=== PATIENT | male | born 1940 | race Caucasian/White ===

== ENCOUNTER → 2017-10-28 16:40 | Outpatient (CLI) | payer MEDICARE, SELFPAY ==
[2017-10-28 18:09] LABS: Anion Gap 7 (5-15); BUN 34 mg/dL (7-18); BUN/Creat Ratio 22.2 RATIO (10-20); Calcium,Total 8.2 mg/dL (8.5-10.1); Chloride 105 mmol/L (98-107); Creatinine, Serum 1.53 mg/dL (0.70-1.30); EST Glomerular Filtration Rate 47 mL/min (>60); Est Glom Filt Rate - Afr Amer 57 mL/min (>60); Glucose 150 mg/dL (70-110); Potassium 4.3 mmol/L (3.5-5.1); Sodium Level 139 mmol/L (136-145)
== END ==
PROVIDERS: Family Provider Family Medicine; PCP Family Medicine; Visit Provider Internal Medicine Gastroenterology
DX: K74.60 Unspecified cirrhosis of liver (principal); R19.7 Diarrhea, unspecified
CPT/HCPCS: 36415; 80048

== ENCOUNTER → 2017-11-04 10:35 | Outpatient (CLI) | payer MEDICARE, SELFPAY ==
--- NOTE | 2017-11-04 10:39 | US_ITS ---
PROCEDURE: Ultrasound guided paracentesis. DATE OF EXAMINATION: November 04, 2017.. INDICATION: Male, 76 years old. Ascites. PHYSICIAN: Shane Medrano M.D. TECHNIQUE: The risks, benefits, and alternatives to the procedure were explained to the patient. The specific risks of bleeding, infection, and damage to bowel were detailed and accepted. Witnessed informed consent was obtained. The abdomen was ultrasonographically surveyed. An appropriate pocket of fluid was identified at the right lower quadrant. The skin were cleaned and prepped in the usual sterile fashion. Using ultrasound guidance, the peritoneal cavity was accessed with a 5-[place] paracentesis needle/catheter system. The trocar was removed. A total of 8600 ml of meghann-colored fluid were removed from the peritoneal cavity. The catheter was removed and a sterile dressing was applied. The procedure was well tolerated. US/Paracentesis with US IMPRESSION: Ultrasound guided paracentesis. Electronically Signed: Shane Medrano MD at 12:31 EST Tel [phone], Service support ,
== END ==
PROVIDERS: Family Provider Family Medicine; PCP Family Medicine; Visit Provider Internal Medicine Gastroenterology
DX: R18.8 Other ascites (principal); K74.69 Other cirrhosis of liver
CPT/HCPCS: 49083

== ENCOUNTER → 2018-09-11 12:54 | Outpatient (CLI) | payer MEDICARE, SELFPAY ==
[2018-09-04 14:13] VITALS: BMI 28.8
--- NOTE | 2018-09-11 12:57 | STE_ITS ---
Reason For Study: CAD/ASHD Stress Results Protocol: Stress Echocardiogram Maximum Predicted HR: 143 bpm Target HR: 122 bpm % Maximum Predicted HR: 89 % DurationHeart Rate Stage (mm:ss) (bpm) BP Dose Comment BASELINE 81 178/90 NTG 0.4 MG SL GIVEN X 1 @ 1341, BP CAME DOWN TO 118/61 DSE- 10 MCG 3:12 88 142/6810.00 DSE- 20 MCG 3:06 116 131/5320.00 DSE- 30 MCG 2:48 127 127/4930.00DENIED COMPLAINT RECOVERY 93 154/79 Stress Duration: 9:06 mm:ss Maximum Stress HR: 127 bpm Baseline Echocardiogram Findings The estimated ejection fraction is 65 %. Stress Echo Wall motion Data Resting WM Intermediate WM Stress WM Wall Motion Stress No regional wall motion abnormalities noted. EKG Data Normal intervals are noted. The patient was titrated from 10 mcg to a maximun of 30 mcg of dobutamine during the stress. The maximum heart rate attained was 127 beats per minute. This was 88% of maximum predicted heart rate. During dobutamine infusion, there were no ST or T wave changes noted to suggest ischemia. No clinical angina was noted. Interpretation Summary The study was technically difficult. The estimated ejection fraction is 65 %. Normal, adequate, dobutamine echocardiogram. Negative for ischemia by EKG and echocardiographic criteria. No anginal symptoms noted. Rare PVC noted. Appropriate blood pressure response to dobutamine. Final LVEF is 75%. Decreased sensitivity due to poor echo windows. Test terminated due to attainment of target heart rate. No complications. Ordering Physician: Christopher Jay Referring Physician: Khalif Gilliland M.D. Performed By: Erica Medina, ALEXY, RVT
--- OUTSIDE RECORDS SUMMARY | 2018-10-28 08:29 | XMS RPT_ITS ---
:1940 Author Organization OHIP Care Team Providers Name Role Phone LIO GILLILAND Referring Unavailable BLAIRE ZUNIGA DO Admitting Unavailable BLAIRE ZUNIGA DO Attending Unavailable BLAIRE ZUNIGA DO Primary Care Unavailable LIO GILLILAND Consulting Unavailable PROVIDER, UNKNOWN Consulting Unavailable PROVIDER, UNKNOWN Consulting Unavailable PROVIDER, UNKNOWN Consulting Unavailable CHRISTOPHER RAMIREZ MD Admitting Unavailable CHRISTOPHER RAMIREZ MD Attending Unavailable CHRISTOPHER RAMIREZ MD Primary Care Unavailable LIO GILLILAND Consulting Unavailable PROVIDER, UNKNOWN Consulting Unavailable PROVIDER, UNKNOWN Consulting Unavailable PROVIDER, UNKNOWN Consulting Unavailable Christopher Ramirez Attending Unavailable RamirezChristopher Referring Unavailable Brown, Lio Primary Care Unavailable Christopher Ramirez Consulting Unavailable Jabour, Maryanaent Attending Unavailable Jabour, Vincent Referring Unavailable [facility], Lio Primary Care Unavailable Jabour, Vincent Attending Unavailable Jabour, Vincent Referring Unavailable Brown, Lio Primary Care Unavailable Jabour, Vincent Attending Unavailable Jabour, Vincent Referring Unavailable Brown, Lio Primary Care Unavailable Ramirez, Christopher Attending Unavailable Brown, Lio Referring Unavailable Brown, Lio Primary Care Unavailable Ramirez, Christopher Attending Unavailable Brown, Lio Referring Unavailable Ramirez, Christopher Attending Unavailable Ramirez, Christopher Referring Unavailable Brown, Lio Primary Care Unavailable PROBLEMS PROBLEMS DATE TYPE CONDITION / CODE ATTENDING STATUS SOURCE 09/11/2018 Unknown E78.5 - Christopher Ramirez Active [place] Hyperlipidemia, Community unspecified / Hospital E78.5(ICD-10) Repository 09/11/2018 Unknown I25.10 - Christopher Ramirez Active [place] Atherosclerotic Community heart disease of [facility] [place] coronary Repository artery without angina pectoris / I25.10(ICD-10) 09/11/2018 Unknown I25.5 - Ischemic Christopher Ramirez Active [place] cardiomyopathy / Community I25.5(ICD-10) Hospital Repository 09/11/2018 Unknown R55 - Syncope and Christopher Ramirez Active [place] collapse / Community R55(ICD-10) Hospital Repository 09/11/2018 Unknown Z95.1 - Presence of Christopher Ramirez Active [place] aortocoronary bypass Community graft / Hospital Z95.1(ICD-10) Repository 09/11/2018 Unknown Z95.5 - Presence of Christopher Ramirez Active [place] coronary angioplasty Community implant and graft / Hospital Z95.5(ICD-10) Repository 08/22/2018 Admitting Syncope and collapse BLAIRE ZUNIGA Active [facility]ome[facility] Diagnosis / R55(ICD-10) [facility] Repository 08/22/2018 Principle Syncope and collapse DIDEFRAIN, BLAIRE Active Reji [place] Diagnosis / R55(ICD-10) [facility] Repository 08/22/2018 Secondary Acute kidney DIDEFRAIN, BLAIRE Active Reji [place] Diagnosis failure, unspecified DO [facility] / N179(ICD-10) Hospital Repository 08/22/2018 Secondary Hyperkalemia / DIDBLAIRE ZUNIGA Active Reji [place] Diagnosis E875(ICD-10) [facility] Repository 08/22/2018 Secondary Abrasion of lower DIDUR, BLAIRE Active Reji [place] Diagnosis back and pelvis, [facility] initial encounter / Hospital E08905G(ICD-10) Repository 08/22/2018 Secondary Abrasion of left DIDUR, BLAIRE Active Reji [facility] Diagnosis upper arm, initial [facility] encounter / Hospital O00949M(ICD-10) Repository 08/22/2018 Secondary Other fall on same NADIABLAIRE Diagnosis level, initial [facility] encounter / Hospital L3555PJ(ICD-10) Repository 08/22/2018 Secondary Atherosclerotic DIDEFRAIN, BLAIRE Active Reji [place] Diagnosis heart disease of [facility] [place] coronary Hospital artery without Repository angina pectoris / I2510(ICD-10) 08/22/2018 Secondary Essential (primary) DIDBLAIRE ZUNIGA Diagnosis hypertension / [facility] I10(ICD-10) Hospital Repository 08/22/2018 Secondary Nicotine dependence, DIDBLAIRE ZUNIGA [place] Diagnosis cigarettes, [facility] uncomplicated / Hospital X54846(ICD-10) Repository 08/22/2018 Secondary Presence of KARISBLAIRE ZUNIGAne Diagnosis aortocoronary bypass [facility] graft / Z951(ICD-10) Hospital Repository 08/22/2018 Secondary Presence of coronary DIDBLAIRE ZUNIGA Diagnosis angioplasty implant DO [facility] and graft / Hospital Z955(ICD-10) Repository 08/22/2018 Secondary Type 2 diabetes DIDEFRAIN, BLAIRE [place] Diagnosis mellitus without [facility] complications / Hospital E119(ICD-10) Repository 08/22/2018 Secondary correction (current) DIDBLAIRE ZUNIGA Diagnosis use of insulin / [facility] Z794(ICD-10) Hospital Repository 08/22/2018 Secondary Old myocardial DIDEFRAIN, BLAIRE Ballne Diagnosis infarction / [facility] I252(ICD-10) Hospital Repository 08/22/2018 Secondary Personal history of BLAIRE ZUNIGAne Diagnosis other malignant [facility]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 / Hospital T82664(ICD-10) Repository PROCEDURES PROCEDURES No Procedure Records FoundRESULTS RESULTS STRESS TEST ECHO W/O Observed: 09/11/2018 Status: F Source: [place] CONTRAST 4:06 PM [facility] REPOSITORY [facility] Cardiovascular Services [address] [address] Stress Test Echo w/o Contrast MR#: [id number] Acct: [id number] Name: BENNY SUMNER Rep #: [id number] : 1940 77 From: Christopher Ramirez MD Primary Care: Lio Gilliland MD Status: REG CLI Ordering Dr: Christopher Ramirez MD Sex: M C Reason For Study: CAD/ASHD Stress Results Protocol: Stress Echocardiogram Maximum Predicted HR: 143 bpm Target HR: 122 bpm % Maximum Predicted HR: 89 % DurationHeart Rate Stage (mm:ss) (bpm) BP Dose Comment BASELINE 81 178/90 NTG 0.4 MG SL GIVEN X 1 @ 1341, BP CAME DOWN TO 118/61 DSE- 10 MCG 3:12 88 142/6810.00 DSE- 20 MCG 3:06 116 131/5320.00 DSE- 30 MCG 2:48 127 127/4930.00DENIED COMPLAINT RECOVERY 93 154/79 Stress Duration: 9:06 mm:ss Maximum Stress HR: 127 bpm Baseline Echocardiogram Findings The estimated ejection fraction is 65 %. Stress Echo Wall motion Data Resting WM Intermediate WM Stress WM Wall Motion Stress No regional wall motion abnormalities noted. EKG Data Normal intervals are noted. The patient was titrated from 10 mcg to a maximun of 30 mcg of dobutamine during the stress. The maximum heart rate attained was 127 beats per minute. This was 88% of maximum predicted heart rate. During dobutamine infusion, there were no ST or T wave changes noted to suggest ischemia. No clinical angina was noted. Interpretation Summary The study was technically difficult. The estimated ejection fraction is 65 %. Normal, adequate, dobutamine echocardiogram. Negative for ischemia by EKG and echocardiographic criteria. No anginal symptoms noted. Rare PVC noted. Appropriate blood pressure response to dobutamine. Final LVEF is 75%. Decreased sensitivity due to poor echo windows. Test terminated due to attainment of target heart rate. No complications. Ordering Physician: Christopher Ramirez Referring Physician: Khalif Gilliland M.D. Performed By: Erica Medina, ALEXY, RVT 09/11/18 1606 Date Christopher Ramirez MD CC: Christopher Ramirez MD; Lio Gilliland MD Date Dictated: 09/11/18 1340 Date Transcribed: 09/11/18 1606 [employer] Manager: Signed LIPID PROFILE Collected: 09/08/2018 Status: F Source: [facility]TIZ 10:22 [facility] REPOSITORY TYPE CODE TESTS RESULT OUT OF REFERENCE UNITS RANGE LAB LIPID PROFILE(LOIN C) LIPID PROFILE Result Comment: LIPID PROFILE LAB TRIGLYCERIDE(LOINC) 0 - 150 mg/dl TRIGLYCERIDE 67 LAB CHOLESTEROL(LOINC) 0 - 200 mg/dl CHOLESTEROL 88 LAB HDL(LOINC) 40 - 60 mg/dl HDL Low 38 LAB CHOL/HDL(LOINC) 0.0 - 5.0 CHOL/HDL 2.3 LAB LDL(LOINC) 0 - 129 mg/dl LDL 37 Performed By: #### [id number] #### [facility],[address] [place] [address] HEPATIC FUNCTION Collected: 09/08/2018 Status: F [facility] REPOSITORY TYPE CODE TESTS RESULT OUT OF REFERENCE UNITS RANGE LAB HEPATIC FUNCTION PANEL(LOINC) HEPATIC FUNCTION PANEL Result Comment: HEPATIC FUNCTION PROFILE LAB ALBUMIN(LOINC) 3.4 - 4.8 g/dL ALBUMIN 3.7 LAB ALK PHOS(LOINC) 38 - 126 U/L ALK PHOS 117 LAB AST/SGOT(LOINC) 13 - 39 U/L AST/SGOT 32 LAB ALT/SGPT(LOINC) 10 - 40 U/L ALT/SGPT 20 LAB TOTAL BILI(LOINC) 0.0 - 1.5 mg/dl TOTAL BILI 0.6 LAB DIRECT BILI(LOINC) 0.0 - 0.1 mg/dl High DIRECT BILI 0.2 LAB TOTAL PROTEIN(LOINC) 6.4 - 8.3 g/dl Low TOTAL PROTEIN 6.3 Performed By: #### [id number] #### Reji [facility],[address] [place] [address] CARDIOLOGY VISIT Observed: 09/04/2018 Status: F Source: [place] REPORT 2:32 PM [facility] REPOSITORY [facility] [address] [place] [id number] OFFICE VISIT Date of Service: 09/04/18 MR#: [id number] Acct: [id number] Name: BENNY SUMNER Rep #: [id number] : 1940 Provider: Christopher Ramirez MD Age/Sex: 77/M Location: [facility] [place] Status: Signed HPI HPI Chief Complaint: Routine f/u Details: Referring physician: Dr. Warren Gilliland/Dr Gonzalez It was a pleasure seeing your patient, Benny Sumner, today in our office. He is returning for followup of his coronary artery disease status post coronary artery bypass grafting and, more previously, angioplasty and stenting of the right coronary and circumflex coronaries in 2009 and 2011, respectively. As you know is a very pleasant 77-year-old gentleman with diabetes, hypertension, hypercholesterolemia, coronary artery disease status post bypass surgery on 01/20/98. At that time he received an JARQUIN to the LAD, and an SVG to the left circumflex. Mr. Sumner presented to [facility] in January of 2013 with chest discomfort concerning for recurrent angina with lateral ST changes suggestive of ischemia. An echocardiogram was performed which demonstrated mild left ventricular hypertrophy, inferior segmental dysfunction, ejection fraction 60%, mild left atrial enlargement, mild mitral annular calcification with mild mitral insufficiency, trivial tricuspid insufficiency, calcified aortic root with aortic sclerosis and trivial insufficiency, and the RV systolic pressure was 37. He was transferred to [facility] where he underwent cardiac catheterization and was found to have an ejection fraction of 65%. There was a patent left internal mammary to the left anterior descending. The right coronary stents were patent. The circumflex was found to have a patent saphenous graft to the posterior lateral, however, there was a second obtuse marginal with 70% stenosis and 70% circumflex stenosis beyond the graft both of which were stented with drug-eluting stents. Patient also has a history of drug- eluting stent to the ostium of the RCA in December 2009. Unfortunately the patient has continued to smoke but has reduced his cigarette use to around 5 cigarettes per day. On our last visit, the patient did complain of some chest pain, and underwent a noninvasive non-walking stress test in January 2015 which was negative for inducible ischemia. Since that time he has had no further anginal symptoms. he is taking and tolerating his medicines well. The patient then presented to [facility] on 03/08/16 with hypertensive urgency and chest pain. The patient developed flash pulmonary edema due to hypertension and was urgently transferred to [facility]. There he underwent urgent repeat catheterization which demonstrated a thrombus in the saphenous vein graft to the left circumflex which underwent urgent thrombectomy and drug-eluting stent receiving a 3.5X 18 xience stent, as well as balloon angioplasty only of the proximal mid and ostial RCA. The patient has a previous RCA stent which was described as suboptimally deployed. No additional stenting was done of the RCA. His JARQUIN to his LAD was found to be patent and his stents in the proximal left circumflex were found to have a 40% in-stent restenosis. The 1st OM had a mid 90% stenosis which was not addressed. At that time an echocardiogram was done which demonstrated an EF around 50% and mild to moderate mitral regurgitation with inferior and inferolateral dysfunction. His RVSP was estimated to be 37 mmHg. Patient apparently has developed ascites of unknown cause although he was a lifelong nondrinker, and had required several episodes of therapeutic paracenteses. He no longer has required any of those for some time. According to the daughter, the patient was diagnosed with cirrhosis of the liver. From a cardiac standpoint, he denies any exertional chest pain, angina, shortness of breath other than when he accumulates fluid. His most recent liver function labs were on 07/30/17 which showed an ALT of 29 and alk phos of 147 and AST of 37. Apparently his GI physician is Dr. Amaro. He continues to smoke about a half a pack of cigarettes per day. 08/22/18 he was admitted to [facility] with what appeared to be a syncopal event. He was found to be hyperkalemic with a potassium of 7.1 and his medications were adjusted. He continued spironolactone 50 mg twice daily and Lasix 40 mg a day. his potassium reduced down to 5.5 and he was subsequently discharged. It was felt the patient may be dehydrated, to explain his syncopal episode, was given IV fluids and discharge. Patient is also complained of dry hacking cough for some time. He is on low-dose lisinopril. His blood pressures today is 120/60, and pulse is 80 and regular. His physical exam is as below. EKG on his previous visit demonstrated normal sinus rhythm. Lipids as of 03/08/16 showed HDL of 28 and LDL of 34. Echo from 03/08/16 showed an EF of 40-50%, mild to moderate mitral regurgitation, and RVSP of 37 mmHg. Lipids as of 03/08/16 showing LDL of 34 and HDL 28. Lipids as of 03/19/17 show an LDL of 57 and HDL 32. His lipids as of 10/09/17 showed HDL 34 and LDL 25. 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: No Accompanied by: Daughter Is patient in pain?: No Allergies Sulfa (Sulfonamide Antibiotics) Adverse Reaction (Verified 09/02/18 17:34) Nausea Medications Allopurinol [Zyloprim] 300 mg PO DAILY 03/12/16 [History Confirmed 09/04/18] Aspirin [Aspirin, Baby] 81 mg PO DAILY@0800 03/12/16 [History Confirmed 09/04/18] Isosorbide Mononitrate [Imdur] 120 mg PO DAILY 03/12/16 [History Confirmed 09/04/18] Paroxetine HCl [Paxil] 20 mg PO DAILY 03/12/16 [History Confirmed 09/04/18] furosemide 40 mg tablet 40 mg PO QDAY 09/18/17 [History Confirmed 09/04/18] simvastatin 40 mg tablet 40 mg PO QPM 09/18/17 [History Confirmed 09/04/18] carvedilol 6.25 mg tablet 6.25 mg PO BID 04/17/18 [History Confirmed 09/04/18] insulin NPH isophane U-100 human 100 unit/mL (3 mL) subcutaneous pen 6 unit SC QHS ml 04/17/18 [History Confirmed 09/04/18] insulin human U-100 NPH-regulr 70-30 mix 100 unit/mL subcutaneous susp 22 unit SC DAILY ml 04/17/18 [History Confirmed 09/04/18] spironolactone 50 mg tablet 50 mg PO QDAY 04/17/18 [History Confirmed 09/04/18] [facility] Medical History Syncope (Acute 08/22/18) Ascites (Acute) Ischemic cardiomyopathy (Chronic) Atherosclerosis of coronary artery of [place] heart without angina pectoris (Chronic) Atherosclerosis of coronary artery bypass graft without angina pectoris (Chronic) CVA (cerebral vascular accident) (Chronic) Hypertension (Chronic) Hyperlipidemia (Chronic) Type 2 diabetes mellitus without complications (Chronic) Cirrhosis (Chronic) Old myocardial infarction (Chronic) Pancreatitis (Chronic) Surgical History History of coronary artery stent placement (Chronic 03/09/16) H/O coronary artery bypass surgery (Chronic 01/20/98) paracentesis (Chronic 07/2017) Social History Smoking Status: Current every day smoker ROS Const Const: Positive for other (08/22 passed out, went to [facility]. KCL high, dehydrated); negative for fatigue, weakness, body ache, fever(s), headache(s), chills, frequent falls, night sweats, daytime sleepiness, difficulty sleeping, excessive sweating, weight gain, weight loss, increased appetite, poor appetite or anorexia Eyes Eyes: Negative for blind spots, loss of peripheral vision, transient loss of vision, blurry vision, change in vision, double vision, floaters, tunnel vision or other ENT ENT: Negative for dizziness, hearing loss, tinnitus, Nosebleed/epistaxis, balance problems, post nasal drip, lip swelling, tongue swelling, bleeding gums, hoarseness, neck pain, dry mouth, other or headache(s) Cardio Chest Pain: No Palpitations: No Edema: None Muscle aches with walking: None Resp Respiratory: Negative for SOB with activity, SOB at rest, SOB orthopnea\SOB lying down, Cough, Coughing up blood/hemoptysis, chest congestion, pain on inspiration, snoring, stridor, wheezing, crackles, paroxysmal nocturnal dyspnea or other GI GI: Negative nausea, vomiting, heartburn, constipation, belching, bloating, cramping, vomiting blood/hematemesis, bright, red blood in stools, black,tarry stools, loose stools, Difficulty Swallowing or other : Negative for hematuria, frequent nighttime urination/ nocturia, erectile dysfunction or abnormal vaginal bleeding Musc Musc: Negative for balance problems, muscle aches/ myalgia, muscle weakness or joint pain Skin Skin: Negative redness, non-healing lesions, rash, unusual bruising, skin ulcer, wounds, jaundice or other Neuro Neuro: Negative for blurry vision, double vision, dizziness, lightheadedness, near syncope, syncope, orthostatic symptoms, confusion, memory loss, restless legs, vertigo, seizures, lack of coordination, other, weakness, headache(s) or frequent falls [place] Hematologic/Lymphatic: Negative for easy bleeding, easy bruising, enlarged lymph nodes or other Endo Endo: Negative for cold intolerance, heat intolerance, flushing, increased thirst/drinking, increased hunger, hair loss, hair growth, other, fatigue or excessive sweating Psych Psych: Negative for anxiety, depression, thoughts of harming anyone, thoughts of harming yourself, visual hallucinations, panic attacks or audible hallucinations Allergy Allergy/Immunology: Negative for lip swelling, Negative for tongue swelling, Negative for rash, Negative for throat swelling, Negative for hives Cardiology Exam Const Appearance: cooperative, healthy appearing and no acute distress Nutritional Appearance: well nourished Orientation: alert, oriented x3 and oriented to person Head Head: normal to inspection, atraumatic and normocephalic Nose: external nose normal Face and Sinus: face symmetric Mouth: oral mucosae normal Eyes General: appearance normal, both eyes and all related structures Eyelids: eyelids normal Conjunctivae: conjunctivae normal Pupils: PERRL and normal by confrontation EOM: EOM intact bilaterally Neck Neck: normal visual inspection and full ROM Carotids: normal carotid upstroke Chest Chest inspection: normal inspection of the chest Auscultation: Bilateral: Clear to Auscultation Cardio Palpation: normal PMI Rate: regular rate Rhythm: regular rhythm Heart sounds: S1 normal and S2 normal GI GI: normal to inspection, no hepatosplenomegaly and bowel sounds present Neuro General: alert, oriented x3, awake, CN's II-XI intact bilaterally and moves all extremities Skin Skin: no rashes or lesions noted Extremities Pulses: Normal: Right Femoral Pulse, Left Femoral Pulse, Right Dorsalis Pedis Pulse, Left Dorsalis Pedis Pulse, Right Posterior Tibial Pulse, Left Posterior Tibial Pulse, Right Radial Pulse, Left Radial Pulse Lower Extremity Edema: None: Bilateral Psych Psychological: normal affect Assessment AND Plan 1. Syncope R55 Had episode a year ago, did not go to ER. This time he did. Was hypotensive, K+ 7.1, BUN 64 and creat 2.9 (up from 29 and 1.5 previous year). Dehydration and acute renal injury. Trop neg. Recheck after IV fluids, K+ 5.8. Pt refused both transfer to AND tsfer to [place]. Plan 1. Syncope: The patient had a syncopal disorder while walking around a dark room after getting up from a nap in July 2018. The patient was also found to be hyperkalemic with a potassium of 7.1. In addition the patient complains of decreased energy, and shortness of breath. Unfortunately he continues to smoke. Given the patient's risk factors and extensive cardiac history I recommended that he undergo a dobutamine echocardiogram to evaluate for possible ischemia. If this is grossly abnormal for ischemia he may require a diagnostic coronary angiogram. In addition I recommend discontinuation of his lisinopril given his recent hyperkalemia as he is already on high-dose spironolactone which are most likely contributing to his hyperkalemia. He will continue his spironolactone and Lasix as well as his Coreg. In addition the patient is on Imdur 120 mg p.o. daily, but denies any presyncope or syncope during the day. Orders Orders: 2. HLD (hyperlipidemia) E78.5 Plan 2. Hyperlipidemia: Recommend repeating his lipid profile. His LDL should be less than 70. Continue Zocor. 3. Return office in 6 months. This note was generated using a voice recognition system and there may be incorrect words, spelling or punctuation that were not noted when reviewing the office note prior to saving. Orders Orders: Plan Detail Other Orders Orders: Follow Up +6M (Pierre) Coding Level of Care Code Off vis,est,level 3 Diagnoses Syncope R55 HLD (hyperlipidemia) E78.5 Coding Level of Care Code Off vis,est,level 3 Diagnoses Syncope R55 HLD (hyperlipidemia) E78.5 09/04/18 1432 <Electronically signed by Christopher Ramirez MD> Date Christopher Ramirez MD Cosigner Signature: Date (if applicable) CC: Lio Gilliland MD TROPONIN Collected: 08/22/2018 Status: F Source: [facility] 10:25 PM [facility] REPOSITORY TYPE CODE TESTS RESULT OUT OF REFERENCE UNITS RANGE LAB TROPONIN 0.00 - 0.05 ng/ml I(LOINC) TROPONIN I 0.01 Result Comment: Elevated troponin (above the 99th percentile) usually indicates myocardial ischemia. Results must be interpreted within the clinical setting. 1.Non-ischemic pathology can also cause elevated troponin levels (e.g., acute pulmonary embolism, myocarditis, pericarditis, heart failure, intracranial injury, rhabdomyolisis, sepsis, shock and renal insufficiency). 2.Approximately 1% of healthy adults have elevated troponin levels. 3.Analytical false positive results rarely occur(due to multiple interferences such as heterophile antibodies). Performed By: #### [id number] #### [facility],[address] [place] [address] BMP WITH EGFR Collected: 08/22/2018 Status: F Source: [facility] 10:25 PM [facility] REPOSITORY TYPE CODE TESTS RESULT OUT OF RANGE REFERENCE UNITS LAB BMP with eGFR(LOINC) BMP with eGFR Result Comment: BASIC METABOLIC PANEL LAB SODIUM(LOINC) 136 - 145 mmol/l SODIUM 137 LAB POTASSIUM(LOINC) 3.5 - 5.1 mmol/L High POTASSIUM 5.8 LAB CHLORIDE(LOINC) 98 - 107 mmol/L CHLORIDE High 111 LAB CO2(LOINC) 21.0 - mmol/L 31.0 CO2 Low 20.9 LAB GLUCOSE(LOINC) 74 - 106 mg/dl GLUCOSE High 162 LAB BUN(LOINC) 6 - 20 mg/dl BUN High 61 LAB CREATININE(LOINC) 0.7 - 1.3 mg/dl High CREATININE 2.6 LAB CALCIUM(LOINC) 8.6 - mg/dl 10.2 CALCIUM 9.0 LAB ANION GAP(LOINC) 10 - 20 mmol/L ANION GAP 11 LAB AGE(LOINC) years AGE 77 LAB eGFR(LOINC) 60 - 999 ML/MINUTE eGFR Low 24 LAB eGFR(AA)(LOINC) 60 - 999 ML/MINUTE eGFR(AA) Low 29 Result Comment: ACCORDING TO THE NATIONAL KIDNEY DISEASE EDUCATION PROGRAM(NKDE), A NORMAL eGFR IS A VALUE GREATER THAN OR EQUAL TO 60 ML/MIN/1.73 SQ METERS. CHRONIC KIDNEY DISEASE: <60mL/MIN/1.73 SQ METERS KIDNEY FAILURE: <15mL/MIN/1.73 SQ METERS THIS TEST SHOULD ONLY BE USED FOR PATIENTS 18 YEARS OF AGE AND OLDER. Performed By: #### [id number] #### [place] [address] CHEST 2 VIEWS Observed: 08/22/2018 Status: F Source: [facility] 8:34 PM [place] [address] Patient: BENNY SUMNER Phone#: : 1940 Age: 77 Gender: M Pt. Type: ER Account: [id number] Location: [facility] Ordering: BLAIRE ZUNIGA Exam Date: 08/22/2018/20:17 Family Phys: LIO GILLILAND Charge Code: [id number] Physician: [place] Order #: [id number] DLP Dose#: PROCEDURE: X-RAY CHEST 2 VIEWS COMPARISON: [facility], XR, CHEST PA/LAT, 07/17/2017, 14:22. INDICATIONS: Trauma FINDINGS: LUNGS: Normal. No significant pulmonary parenchymal abnormalities. VASCULATURE: Normal. Unremarkable pulmonary vasculature. CARDIAC: Normal. No cardiac silhouette abnormality or cardiomegaly. MEDIASTINUM: Normal. No visible mass or adenopathy. PLEURA: Normal. No effusion or pleural thickening. BONES: Normal. No fracture or visible bony lesion. OTHER: Sternotomy sutures are present. CONCLUSION: No acute disease. Dictated by: Lynn Jackson MD on 08/23/2018 at 10:24 Approved by: Lynn Jackson MD on 08/23/2018 at 10:24 HIP COMPLETE LT MIN 2 Observed: 08/22/2018 Status: F Source: [facility] VIEWS W/PELVIS 8:34 PM [place] [address] Patient: BENNY SUMNER Phone#: : 1940 Age: 77 Gender: M Pt. Type: ER Account: [id number] Location: 05 Ordering: BLAIRE ZUNIGA Exam Date: 08/22/2018/20:18 Family Phys: LIO GILLILAND Charge Code: [id number] Physician: [place] Order #: [id number] DLP Dose#: PROCEDURE: X-RAY HIP LT COMPLETE MIN 2 VIEWS W/PELVIS COMPARISON: None. INDICATIONS: Trauma FINDINGS: BONES: Normal. No significant arthropathy or acute abnormality. SOFT TISSUES: Vascular calcifications are present. Surgical clips are present in the soft tissues of the medial thigh. EFFUSION: None visible. OTHER: Negative. CONCLUSION: No acute disease. Dictated by: Lynn Jackson MD on 08/23/2018 at 10:24 Approved by: Lynn Jackson MD on 08/23/2018 at 10:24 LUMBO SACRAL AP LAT Observed: 08/22/2018 Status: F Source: [facility] 8:34 PM [place] [address] Patient: BENNY SUMNER Phone#: : 1940 Age: 77 Gender: M Pt. Type: ER Account: [id number] Location: 052 Ordering: BLAIRE ZUNIGA Exam Date: 08/22/2018/20:19 Family Phys: LIO BROWN Charge Code: [id number] Physician: [place] Order #: [id number] DLP Dose#: PROCEDURE: X-RAY LUMBAR SPINE AP/LAT 2 VIEWS COMPARISON: None. INDICATIONS: Trauma FINDINGS: BONES: Degenerative changes are present most marked at the L2-3 level. Minimal curvature of the spine to the left is present. Degenerative changes of the hips are present. DISC SPACES: Normal. No significant disc height narrowing, subluxation, or endplate abnormality. PARASPINOUS: Calcification of aorta is present without aneurysmal dilatation. OTHER: Negative. CONCLUSION: 1. There is no evidence of acute bone abnormality. Dictated by: Lynn Jackson MD on 08/23/2018 at 10:25 Approved by: Lynn Jackson MD on 08/23/2018 at 10:25 CT CERVICAL W/O Observed: 08/22/2018 Status: F Source: [facility] CONTRAST 8:33 PM [place] [address] Patient: BENNY SUMNER Phone#: : 1940 Age: 77 Gender: M Pt. Type: ER Account: [id number] Location: 052 Ordering: BLAIRE ZUNIGA Exam Date: 08/22/2018/20:16 Family Phys: LIO GILLILAND Charge Code: [id number] Physician: [place] Order #: [id number] DLP Dose#: PROCEDURE: CT CERVICAL WITHOUT CONTRAST COMPARISON: None. INDICATIONS: Trauma TECHNIQUE: Multi-planar CT images were created without intravenous contrast. All CT scans at this facility use dose modulation, iterative reconstruction, and/or weight based dosing when appropriate to reduce radiation dose to as low as reasonably achievable. IV CONTRAST: No IV contrast used,0ml TOTAL DOSE: 11.1 CTDIvol(mGy) FINDINGS: CRANIOCERVICAL AREA: Normal foramen magnum with no Chiari malformation. PARASPINAL AREA: Carotid artery calcification is present. BONES: There is straightening of the normal cervical lordosis. Degenerative change is present most marked at C5-6 and C6-7. CERVICAL DISC LEVELS: C2-C3: No significant disc/facet abnormality, spinal stenosis, or foraminal stenosis. C3-C4: Endplate hypertrophy is present with left foraminal impingement. C4-C5: No significant disc/facet abnormality, spinal stenosis, or foraminal stenosis. C5-C6: Narrowing is present. There are is endplate hypertrophy with bilateral foraminal impingement. C6-C7: Disc space narrowing is present. Bony hypertrophy at the endplates is present with bilateral foraminal impingement. C7-T1: No significant disc/facet abnormality, spinal stenosis, or foraminal stenosis. CONCLUSION: 1. There is no evidence of acute fracture or subluxation. Continued Report - Page 2 of 2 Patient: BENNY SUMNER Phone#: : 1940 Age: 77 Gender: M Pt. Type: ER Account: [id number] Location: 052 Ordering: BLAIRE ZUNIGA Exam Date: 08/22/2018/20:16 Family Phys: LIO GILLILAND Charge Code: [id number] Physician: [place] Order #: [id number] DLP Dose#: 2. Degenerative changes are present. Dictated by: Lynn Jackson MD on 08/23/2018 at 10:36 Approved by: Lynn Jackson MD on 08/23/2018 at 10:36 CT BRAIN W/O CONTRAST Observed: 08/22/2018 Status: F Source: [facility] 8:33 PM [place] [address] Patient: BENNY SUMNER Phone#: : 1940 Age: 77 Gender: M Pt. Type: ER Account: [id number] Location: 052 Ordering: BLAIRE ZUNIGA Exam Date: 08/22/2018/20:16 Family Phys: LIO GILLILAND Charge Code: [id number] Physician: [place] Order #: [id number] DLP Dose#: PROCEDURE: CT BRAIN WITHOUT CONTRAST COMPARISON: None. INDICATIONS: Trauma TECHNIQUE: CT images were obtained without contrast material. All CT scans at this facility use dose modulation, iterative reconstruction, and/or weight based dosing when appropriate to reduce radiation dose to as low as reasonably achievable. IV CONTRAST: No IV contrast used,0ml TOTAL DOSE: 52.3 CTDIvol(mGy) FINDINGS: CEREBRUM: Age-appropriate atrophy is present, without visible acute hemorrhage or lesion. Left basal ganglia calcifications are present. CEREBELLUM: No edema, hemorrhage, mass, acute infarction, or inappropriate atrophy. BRAINSTEM: No edema, hemorrhage, mass, acute infarction, or inappropriate atrophy. CSF SPACES: Ventricles, cisterns, and sulci are appropriate for age. No hydrocephalus, subarachnoid hemorrhage, or mass. SKULL: No mass or other significant visible lesion. SINUSES: Dose of thickening is present most marked at the ethmoid sinuses. There is also mucosal thickening in the sphenoid sinuses and mucocele in the left frontal sinus ORBITS: Limited views are unremarkable. OTHER: Negative. CONCLUSION: No acute disease. Dictated by: Lynn Jackson MD on 08/23/2018 at 10:38 Continued Report - Page 2 of 2 Patient: BENNY SUMNRE Phone#: : 1940 Age: 77 Gender: M Pt. Type: ER Account: [id number] Location: [facility] Ordering: BLAIRE ZUNIGA Exam Date: 08/22/2018/20:16 Family Phys: LIO GILLILAND Charge Code: [id number] Physician: [place] Order #: [id number] DLP Dose#: Approved by: Lynn Jackson MD on 08/23/2018 at 10:38 CBC Collected: 08/22/2018 Status: F Source: [facility] 8:05 PM [facility] REPOSITORY TYPE CODE TESTS RESULT OUT OF RANGE REFERENCE UNITS LAB CBC(LOINC) CBC Result Comment: CBC-COMPLETE BLOOD COUNT LAB WBC(LOINC) 4.5 - 10.8 x 10EE3/UL WBC High 11.6 LAB RBC(LOINC) 4.50 - x 10EE6/UL 6.00 RBC Low 3.62 LAB HEMOGLOBIN(LOINC 13.0 - g/dl ) 17.5 Low HEMOGLOBIN 11.4 LAB HEMATOCRIT(LOINC 40.0 - % ) 52.0 Low HEMATOCRIT 34.1 LAB MCV(LOINC) 81 - 98 fl MCV 94 LAB MCH(LOINC) 27 - 33 pg MCH 32 LAB MCHC(LOINC) 32 - 36 X10 3 MCHC 34 LAB RDW/CV(LOINC) 12.0 - % 15.6 RDW/CV High 16.6 LAB PLATELET(LOINC) 150 - 450 x10EE3/UL PLATELET Low 128 LAB MPV(LOINC) 6.4 - 10.5 fl MPV 8.6 Result Comment: AUTOMATED DIFFERENTIAL LAB NEUT %(LOINC) 46.0 - 76.0 % NEUT % 76.0 LAB LYMPH %(LOINC) 20.0 - 45.0 % Low LYMPH % 12.5 LAB MONOS %(LOINC) 0.0 - 10.0 % MONOS % 5.7 LAB EO %(LOINC) 0.0 - 7.0 % EO % 5.0 LAB BASO %(LOINC) 0.0 - 2.0 % BASO % 0.8 LAB Lymph #(LOINC) 0.80 - 2.80 x10EE3/U L Lymph # 1.40 LAB Neut #(LOINC) 1.50 - 7.10 x10EE3/U L Neut # High 8.80 LAB Louisa #(LOINC) 0.20 - 1.00 x10EE3/U L Louisa # 0.70 LAB EO #(LOINC) 0.00 - 0.50 x10EE3/U L EO # High 0.60 LAB Baso #(LOINC) 0.00 - 0.10 x10EE3/U L Baso # 0.10 LAB MANUAL DIFF(LOINC) MANUAL DIFF N/A LAB MORPHOLOGY(LOINC ) MORPHOLOGY N/A Result Comment: {CD] Performed By: #### [id number] #### [place] [id number] D-DIMER, QUANTITATIVE Collected: 08/22/2018 Status: F Source: [facility] 8:05 PM [facility] REPOSITORY TYPE CODE TESTS RESULT OUT OF REFERENCE UNITS RANGE LAB D-DIMER, QUANTITATI VE(LOINC) D-DIMER, QUANTITATIVE Result Comment: QUANT D-DIMER LAB D-DIMER 0 - 230 ng/ml QUANT(LOINC) High D-DIMER QUANT 372 Performed By: #### [id number] #### [place] [id number] Observed: 08/22/2018 Status: F Source: [facility] INFLUENZA VIRUS RAPID 8:05 PM [facility] A/B REPOSITORY INFLUENZA A NEGATIVE INFLUENZA B NEGATIVE INTERNAL NEG QC PASS INTERNAL POS QC PASS EXTERNAL QC DONE? YES A NEGATIVE TEST RESULT DOES NOT EXCLUDE INFECTION WITH INFLUENZA A OR B. THEREFORE, THE RESULTS OBTAINED FROM THIS FLU TEST SHOULD BE USED IN CONJUCTION WITH CLINICAL FINDINGS TO MAKE AN ACCURATE DIAGNOSIS. A POSITIVE RESULT DOES NOT RULE OUT CO-INFECTIONS WITH OTHER PATHOGENS OR IDENTIFY ANY SPECIFIC INFLUENZA A VIRUS SUBTYPE.CO-INFECTION WITH INFLUENZA A AND B IS RARE. IT IS RECOMMENDED THAT DUAL POSITIVE RESULTS BE CONFIRMED BY VIRAL CULTURE OR AN FDA-CLEARED INFLUENZA A AND B MOLECULAR ASSAY. INDIVIDUALS WHO HAVE RECEIVED NASALLY ADMINISTERED INFLUENZA A VACCINE MAY TEST POSITIVE IN COMMERCIALLY AVAILABLE INFLUENZA RAPID DIAGNOSTIC TESTS FOR UP TO THREE DAYS. Performed By: #### [id number] #### [place] [address] LACTATE Collected: 08/22/2018 Status: F Source: [facility] 8:05 [facility] REPOSITORY TYPE CODE TESTS RESULT OUT OF REFERENCE UNITS RANGE LAB LACTATE(HADLEY 4.5 - 18.0 mg/dL NC) LACTATE 16.4 Performed By: #### [id number] #### [place] [address] TROPONIN Collected: 08/22/2018 Status: F Source: [facility] 8:05 [facility] REPOSITORY TYPE CODE TESTS RESULT OUT OF REFERENCE UNITS RANGE LAB TROPONIN 0.00 - 0.05 ng/ml I(LOINC) TROPONIN I 0.02 Result Comment: Elevated troponin (above the 99th percentile) usually indicates myocardial ischemia. Results must be interpreted within the clinical setting. 1.Non-ischemic pathology can also cause elevated troponin levels (e.g., acute pulmonary embolism, myocarditis, pericarditis, heart failure, intracranial injury, rhabdomyolisis, sepsis, shock and renal insufficiency). 2.Approximately 1% of healthy adults have elevated troponin levels. 3.Analytical false positive results rarely occur(due to multiple interferences such as heterophile antibodies). Performed By: #### [id number] #### [place] [address] CMP WITH EGFR Collected: 08/22/2018 Status: F Source: [facility] 8:05 [facility] REPOSITORY TYPE CODE TESTS RESULT OUT OF RANGE REFERENCE UNITS LAB CMP with eGFR(LOINC) CMP with eGFR Result Comment: COMPREHENSIVE METABOLIC PANEL LAB SODIUM(LOINC) 136 - 145 mmol/l Low SODIUM 133 LAB POTASSIUM(LOINC) 3.5 - 5.1 mmol/L High Alert POTASSIUM 7.1 Result Comment: { CALLED TO BECCA BY LMM @ 2043 { READ BACK BY BECCA RA 2039 LAB CHLORIDE(LOINC) 98 - 107 mmol/L CHLORIDE High 108 LAB CO2(LOINC) 21.0 - mmol/L 31.0 CO2 Low 20.4 LAB GLUCOSE(LOINC) 74 - 106 mg/dl GLUCOSE High 192 LAB BUN(LOINC) 6 - 20 mg/dl BUN High 64 LAB CREATININE(LOINC) 0.7 - 1.3 mg/dl High CREATININE 2.9 LAB AST/SGOT(LOINC) 13 - 39 U/L AST/SGOT 29 LAB ALK PHOS(LOINC) 38 - 126 U/L ALK PHOS 88 LAB CALCIUM(LOINC) 8.6 - mg/dl 10.2 CALCIUM 8.8 LAB TOTAL PROTEIN(LOINC) 6.4 - 8.3 g/dl TOTAL Low PROTEIN 6.0 LAB ALBUMIN(LOINC) 3.4 - 4.8 g/dL ALBUMIN 3.7 LAB GLOBULIN(LOINC) 1.5 - 3.8 G/DL GLOBULIN 2.3 LAB A/G RATIO(LOINC) 0.9 - 1.6 A/G RATIO 1.6 LAB TOTAL BILI(LOINC) 0.0 - 1.5 mg/dl TOTAL BILI 0.5 LAB B/C RATIO(LOINC) 0 - 30 ratio B/C RATIO 22 LAB ALT/SGPT(LOINC) 10 - 40 U/L ALT/SGPT 21 LAB ANION GAP(LOINC) 10 - 20 mmol/L ANION GAP 12 LAB AGE(LOINC) years AGE 77 LAB eGFR(LOINC) 60 - 999 ML/MINUTE eGFR Low 21 LAB eGFR(AA)(LOINC) 60 - 999 ML/MINUTE eGFR(AA) Low 26 Result Comment: ACCORDING TO THE NATIONAL KIDNEY DISEASE EDUCATION PROGRAM(NKDE), A NORMAL eGFR IS A VALUE GREATER THAN OR EQUAL TO 60 ML/MIN/1.73 SQ METERS. CHRONIC KIDNEY DISEASE: <60mL/MIN/1.73 SQ METERS KIDNEY FAILURE: <15mL/MIN/1.73 SQ METERS THIS TEST SHOULD ONLY BE USED FOR PATIENTS 18 YEARS OF AGE AND OLDER. Performed By: #### [id number] #### [facility],[address] [place] [id number] BNP (B-TYPE NATRIURETIC Collected: 08/22/2018 Status: F Source: [facility] PEPTIDE) 8:05 PM [facility] REPOSITORY TYPE CODE TESTS RESULT OUT OF RANGE REFERENCE UNITS LAB BNP(LOINC) 1 - 100 pg/ml High BNP 104 Performed By: #### [id number] #### [facility],[address] [place] [address] Observed: 08/22/2018 Status: F Source: [facility] CULTURE BLOOD 8:05 PM [facility] REPOSITORY CULTURE BLOOD CULTURE BLOOD SET: 1 of 2 24HOUR REPORT NEGATIVE 48HOUR REPORT NEGATIVE 72HOUR REPORT NEGATIVE M I C R O B I O L O G Y R E P O R T FINAL Antimicrobial Susceptibility and Organism Identification Report Specimen Number : [id number] Requested : 08/22/18 Specimen Source : BLOOD Collected : 08/22/18 20:05 [facility] : Emergency Room Received : 08/22/18 20:05 Requesting Physician : NADIA Patient/Specimen Tests and Comments Specimen Comments FINAL REPORT: No Growth at 5 Days Tech : Source : BLOOD ID # : [id number] FINAL Report Date : / / : Collected : 08/22/18 20:05 08/28/18.815.BKO. 08/28/18.BKO.COMPLETE Performed By: #### [id number] #### [facility],[address] [place] [address] Observed: 08/22/2018 Status: F Source: [facility] CULTURE BLOOD 7:55 PM [facility] REPOSITORY CULTURE BLOOD CULTURE BLOOD SET: 2 of 2 24HOUR REPORT NEGATIVE 48HOUR REPORT NEGATIVE 72HOUR REPORT NEGATIVE M I C R O B I O L O G Y R E P O R T FINAL Antimicrobial Susceptibility and Organism Identification Report Specimen Number : [id number] Requested : 08/22/18 Specimen Source : BLOOD Collected : 08/22/18 19:55 [facility] : Emergency Room Received : 08/22/18 19:55 Requesting Physician : NADIA Patient/Specimen Tests and Comments Specimen Comments FINAL REPORT: No Growth at 5 Days Tech : Source : BLOOD ID # : [id number] FINAL Report Date : / / : Collected : 08/22/18 19:55 08/28/18.BKO. 08/28/18.JOSUE.COMPLETE Performed By: #### [id number] #### [facility],[address] [place] [address] EMERGENCY REPORT Observed: 08/22/2018 Status: F [facility] EMERGENCY ROOM REPORT NAME ACCOUNT SEX AGE ADMIT DISCHARGE PT MED. RECORD# NUMBER DATE DATE TYPE SUMNER, BENNY F [id number] M 77 08/22/18 08/23/18 3 [id number] ROOM: ER DATE OF : 1940 DICTATING PHYSICIAN: Blaire Zuniga Time Seen: 7:00 pm CHIEF COMPLAINT/HISTORY OF PRESENT ILLNESS: This is a 77-year-old white male who stood up and walked to the back of the bed and states that he blacked out. He thinks that he was out for about an hour. When he woke up, he found himself lying on the floor. He was able to get up under his own power and he called his grand-daughter. They checked his blood pressure there at the house, and it was low at 86/40. Then, they rechecked it and it was 92/46, and they thought he might be dehydrated. He did fall and strike his left lower back on the nightstand when he feel. The granddaughter said there was some broken glass under him. So, he apparently had fallen on some kind of glass and broke it. The patient had passed out in a similar episode about a year ago but he never sought any medical attention for that at that time. He denies any chest pain or shortness of breath. He denies any headache. He does complain of some nausea and diarrhea, but he denies any actually vomiting. He states that his right eye has been blurry for the past several months, but he did see the eye doctor and he his eye looked okay. 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 Review of the old records indicated that he had episodes of atrial fibrillation in the past, but there was no documented recurrence and he is not anticoagulated. PAST SURGICAL HISTORY: Coronary artery bypass graft in 1997, previous hernia repair, multiple areas of skin cancer removed in the past, polypectomy in the past. He also did have stents placed after his coronary artery bypass graft and the patient tells me that he has had a total of 8 myocardial infarctions. He also has a total of 8 coronary artery stents. He also has had bilateral lens implant in his eyes in the distant past. Family tells me that he has a history of cirrhosis of the liver and he was getting the ascitic fluid drained quite frequently, but they have started him on some medication and he now does not have that done as often. He also, according to the family, has a history of congestive heart failure. ALLERGIES: Sulfa. SOCIAL HISTORY: The patient is a smoker, 1/2 pack per day. He states that he smoked for about 60 years. He does admit to occasional alcohol use. He denies any Page 1 of 3 BENNY SUMNER Emergency Room Report drug use. He is and lives by himself. REVIEW OF SYSTEMS: Admits to syncope. He denies any chest pain or shortness of breath. He does admit to a cough, and his family doctor, Dr. Lio Gilliland, has him on an antibiotic right now. He denies any sputum or wheezing. He denies abdominal pain. He does admit to nausea and diarrhea. He denies any vomiting. He denies any constipation, melena or hematochezia. He denies any headache or numbness. He does admit to an unsteady gait or weakness. He denies any neck pain, but he does complain of some low back pain. He does admit to some skin abrasions and skin tears to his left lower back and left upper arm. He states that his last tetanus has been greater than 5 years ago. Further review of systems is negative. PHYSICAL EXAMINATION: Blood pressure 93/47, pulse 65, respires 16, temperature 97.2, pulse ox 98%, weight 170 pounds. The patient is alert and oriented x 3. Appears in no acute distress. Pleasant and cooperative. He is sitting up on the side of the bed He speaks in full sentences. HEENT: Head appears atraumatic. Pupils are equal and reactive to light. Red reflex intact bilaterally. Extraocular muscles intact. No conjunctival injection. No scleral icterus or lid edema. Ears: TMs intact bilaterally. No erythema noted. No hemotympanum. Nose: No rhinorrhea or epistaxis. Mouth: Mucous membranes are dry. No pharyngeal erythema. Uvula is midline and elevates. Neck is supple. Trachea is midline. No JVD or lymphadenopathy. No posterior cervical tenderness on palpation. No nuchal rigidity. Lungs are somewhat diminished bibasilar, clear anteriorly. No wheezing or accessory muscle use. CVS: Heart rate and rhythm is regular without murmur. Abdomen is soft and nontender with normoactive bowel sounds x4 quadrants. No guarding, rebound or rigidity. Extremities: No palpable abdominal mass. No hepatosplenomegaly. Back exhibits some lower lumbar region tenderness. Both in midline and left paraspinal muscle regions. He does have a superficial skin tear to the left lower lumbar region of the back. No skin laceration, just a skin tear/abrasion. Extremities: I do note a skin tear to his left upper arm as well, very superficial. No associated skin laceration. He does move all 4 extremities symmetrically He was able to sit up on the bed by himself without difficulty. He does have some tenderness over the left hip region as well. He does have good peripheral pulses. He does move all 4 extremities pretty strong and symmetrically. He is alert and oriented x4. No motor or sensory deficits noted. Normal speech. I do not note any slurred speech. He does have a persistent cough noted. He is pleasant and cooperative with normal affect. EMERGENCY DEPARTMENT COURSE AND TREATMENT: We will obtain a cardiac workup with some blood cultures, urinalysis. We will get some orthostatic vital signs. We will give some IV fluids. I will do a CT scan of the head and neck. We will get an x-ray of the lower back and left hip and then reevaluate. Dictated By: Blaire Zuniga DO 08/22/18 19:34 JOB #: [id number] Transcribed By: haile Page 2 of 3 [facility] Emergency Room Report 08/23/18 09:37 Electronically signed by: E-Sign: Dr. Blaire Zuniga D.O. 08/30/18 02:45 Page 3 of 3 BENNY [facility]NER [facility] Emergency Room Report EMERGENCY REPORT Observed: 08/22/2018 Status: F Source: [facility] 6:58 PM [facility] EMERGENCY ROOM REPORT NAME ACCOUNT SEX AGE ADMIT DISCHARGE PT MED. RECORD# NUMBER DATE DATE TYPE BENNY SUMNER [id number] M 77 08/22/18 08/23/18 3 [id number] ROOM: ER DATE OF : 1940 DICTATING PHYSICIAN: Blaire Zuniga ADDENDUM DIAGNOSTIC DATA: Bloodwork came back with a white count of 11.6, hemoglobin 11.4, hematocrit 34.1, and platelet count 128,000. D-dimer was elevated at 372. However, his BUN and creatinine were too high to give him any contrast dye. His BUN was 64 and creatinine 2.9. I did check his BUN and creatinine from a previous visit, which was August 16, 2017. BUN and creatinine at that time were 29 and 1.5, so it is higher now. Most importantly, his potassium today is 7.1. Sodium is 133, chloride 108, CO2 of 20.4, and glucose 192. Liver functions came back within normal limits. Supposedly he does have a history of cirrhosis, according to the family. His anion gap was 12. I did do a CT scan of his head and neck, and that came back as no acute disease. His EKG showed normal sinus rhythm at 66 bpm with a nonspecific intraventricular conduction delay. I did have a previous EKG from August 27, 2016, and I did not see any big changes between those 2 graphs, which is surprising considering his potassium being elevated. EMERGENCY DEPARTMENT COURSE AND TREATMENT: I gave him some IV fluids here. We gave him one amp of 50% dextrose IV, Humulin R 10 units IV, one amp of calcium gluconate, and one amp of sodium bicarbonate IV. I talked to Dr. Vazquez about admitting him here. He felt since he has the cirrhosis and the kidney injury that he should be transferred to [facility] or some other hospital where they have Nephrology. However, unfortunately the patient refused to be admitted even here let alone be transferred somewhere else. I rechecked his chemistry. It came back with a potassium of 5.8; that was at 2225 hours. However, I have explained to him that his problem is going to recur because of his kidney injury. His repeat troponin was 0.01. BUN was 61, and creatinine was 2.6 on this repeat bloodwork. Sodium was 137, chloride 111, CO2 of 20.9, and glucose 162. There is a granddaughter in the room. She tried as well as I did to convince him he needs to be admitted. I explained to him that his heart could stop and he could from a dysrhythmia due to the hyperkalemia, but he states that he is not going to be admitted to the hospital. At this point, my hands are tied. I cannot get him to be admitted. I will speak with Dr. Lio Gilliland, his primary care physician, or whoever is on-call tonight, and see if we can arrange follow-up in the office on Saturday or Saturday. I did speak to the patient and his family and said that if he changes his mind or if his symptoms become worse he is certainly welcome to return here to the Emergency Department. The patient is alert. He is oriented x4. He is very Page 1 of 2 BENNY SUMNER Emergency Room Report competent to make his own decisions. He understood everything I told him. He just states he is tired of being in the hospital and is not going to be admitted today. I will put a page in for Dr. Lio Gilliland, and I will discuss the case with him that the patient is going to be treated and discharged today due to his refusal to be admitted to the hospital. DIAGNOSES: 1. Hyperkalemia. 2. Acute kidney injury. 3. Syncope. Dictated By: Blaire Zuniga DO 08/23/18 00:16 JOB #: [id number] Transcribed By: marc 08/23/18 12:44 Electronically signed by: E-Sign: Dr. Blaire Zuniga D.O. 08/30/18 02:46 Page 2 of 2 BENNY [facility] Emergency Room Report EMERGENCY REPORT Observed: 08/22/2018 Status: F Source: [facility] 6:58 PM [facility] EMERGENCY ROOM REPORT NAME ACCOUNT SEX AGE ADMIT DISCHARGE PT MED. RECORD# NUMBER DATE DATE TYPE BENNY SUMNER [id number] M 77 08/22/18 08/23/18 [id number] ROOM: ER DATE OF : 1940 DICTATING PHYSICIAN: Blaire Zuniga ADDENDUM DIAGNOSTIC DATA: I did look at the x-rays of the lumbar spine, and there were some degenerative changes noted but I see no acute fracture. I had also looked at the x-rays of the left hip and pelvis, and I see no acute fracture there as well. Dictated By: Blaire Zuniga DO 08/23/18 00:20 JOB #: [id number] Transcribed By: marc 08/23/18 12:56 Electronically signed by: E-Sign: Dr. Blaire Zuniga D.O. 08/30/18 02:46 Page 1 of 1 [facility] Emergency Room Report CARDIOLOGY VISIT Observed: 04/19/2018 Status: F Source: [facility] REPORT :56 AM [facility] REPOSITORY [facility] [address] [place] [address] OFFICE VISIT Date of Service: 04/17/18 MR#: [id number] Acct: [id number] Name: BENNY SUMNER Rep #: [id number] : 1940 Provider: Christopher Ramirez MD Age/Sex: 77/M Location: BMS.G Status: Signed HPI HPI Chief Complaint: Routine f/u Details: Referring physician: Dr. Warren Gilliland/Dr Gonzalez It was a pleasure seeing your patient, Benny Sumner, today in our office. He is returning for followup of his coronary artery disease status post coronary artery bypass grafting and, more previously, angioplasty and stenting of the right coronary and circumflex coronaries in 2009 and 2011, respectively. As you know is a very pleasant 77-year-old gentleman with diabetes, hypertension, hypercholesterolemia, coronary artery disease status post bypass surgery on 01/20/98. At that time he received an JARQUIN to the LAD, and an SVG to the left circumflex. Mr. Sumner presented to [facility] in January of 2013 with chest discomfort concerning for recurrent angina with lateral ST changes suggestive of ischemia. An echocardiogram was performed which demonstrated mild left ventricular hypertrophy, inferior segmental dysfunction, ejection fraction 60%, mild left atrial enlargement, mild mitral annular calcification with mild mitral insufficiency, trivial tricuspid insufficiency, calcified aortic root with aortic sclerosis and trivial insufficiency, and the RV systolic pressure was 37. He was transferred to [facility] where he underwent cardiac catheterization and was found to have an ejection fraction of 65%. There was a patent left internal mammary to the left anterior descending. The right coronary stents were patent. The circumflex was found to have a patent saphenous graft to the posterior lateral, however, there was a second obtuse marginal with 70% stenosis and 70% circumflex stenosis beyond the graft both of which were stented with drug-eluting stents. Patient also has a history of drug- eluting stent to the ostium of the RCA in December 2009. Unfortunately the patient has continued to smoke but has reduced his cigarette use to around 5 cigarettes per day. On our last visit, the patient did complain of some chest pain, and underwent a noninvasive non-walking stress test in January 2015 which was negative for inducible ischemia. Since that time he has had no further anginal symptoms. he is taking and tolerating his medicines well. The patient then presented to [facility] on 03/08/16 with hypertensive urgency and chest pain. The patient developed flash pulmonary edema due to hypertension and was urgently transferred to [facility]. There he underwent urgent repeat catheterization which demonstrated a thrombus in the saphenous vein graft to the left circumflex which underwent urgent thrombectomy and drug-eluting stent receiving a 3.5X 18 xience stent, as well as balloon angioplasty only of the proximal mid and ostial RCA. The patient has a previous RCA stent which was described as suboptimally deployed. No additional stenting was done of the RCA. His JARQUIN to his LAD was found to be patent and his stents in the proximal left circumflex were found to have a 40% in-stent restenosis. The 1st OM had a mid 90% stenosis which was not addressed. At that time an echocardiogram was done which demonstrated an EF around 50% and mild to moderate mitral regurgitation with inferior and inferolateral dysfunction. His RVSP was estimated to be 37 mmHg. Patient apparently has developed ascites of unknown cause although he was a lifelong nondrinker, and has required several episodes of therapeutic paracenteses. He no longer has required any of those for some time. The etiology of his ascites apparently has never been determined. From a cardiac standpoint, he denies any exertional chest pain, angina, shortness of breath other than when he accumulates fluid. His most recent liver function labs were on 07/30/17 which showed an ALT of 29 and alk phos of 147 and AST of 37. Apparently his GI physician is Dr. Amaro. His blood pressures today is 130/70, and pulse is 80 and regular. His physical exam is as below. EKG on her previous visit demonstrated normal sinus rhythm Lipids as of 03/08/16 showed HDL of 28 and LDL of 34. Echo from 03/08/16 showed an EF of 40-50%, mild to moderate mitral regurgitation, and RVSP of 37 mmHg. Lipids as of 03/08/16 showing LDL of 34 and HDL 28. Lipids as of 03/19/17 show an LDL of 57 and HDL 32. His lipids as of 10/09/17 showed HDL 34 and LDL 25. 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 Accompanied by: Granddaughter Is patient in pain?: No Allergies Sulfa (Sulfonamide Antibiotics) Adverse Reaction (Verified 04/17/18 13:14) Nausea Medications Allopurinol [Zyloprim] 300 mg PO DAILY 03/12/16 [History Confirmed 04/17/18] Aspirin [Aspirin, Baby] 81 mg PO DAILY@0800 03/12/16 [History Confirmed 04/17/18] Isosorbide Mononitrate [Imdur] 120 mg PO DAILY 03/12/16 [History Confirmed 04/17/18] Paroxetine HCl [Paxil] 20 mg PO DAILY 03/12/16 [History Confirmed 04/17/18] furosemide 40 mg tablet 40 mg PO QDAY 09/18/17 [History Confirmed 04/17/18] simvastatin 40 mg tablet 40 mg PO QPM 09/18/17 [History Confirmed 04/17/18] carvedilol 6.25 mg tablet 6.25 mg PO BID 04/17/18 [History Confirmed 04/17/18] insulin NPH isophane U-100 human 100 unit/mL (3 mL) subcutaneous pen 6 unit SC QHS ml 04/17/18 [History Confirmed 04/17/18] insulin human U-100 NPH-regulr 70-30 mix 100 unit/mL subcutaneous susp 22 unit SC DAILY ml 04/17/18 [History Confirmed 04/17/18] lisinopril 5 mg tablet 5 mg PO QDAY 04/17/18 [History Confirmed 04/17/18] spironolactone 50 mg tablet 50 mg PO QDAY 04/17/18 [History Confirmed 04/17/18] [facility] Medical History Syncope (Chronic) Ascites (Acute) Ischemic cardiomyopathy (Chronic) Atherosclerosis of coronary artery of [place] heart without angina pectoris (Chronic) Atherosclerosis of coronary artery bypass graft without angina pectoris (Chronic) CVA (cerebral vascular accident) (Chronic) Hypertension (Chronic) Hyperlipidemia (Chronic) Type 2 diabetes mellitus without complications (Chronic) Cirrhosis (Chronic) Old myocardial infarction (Chronic) Pancreatitis (Chronic) Surgical History History of coronary artery stent placement (Chronic 03/09/16) H/O coronary artery bypass surgery (Chronic 01/20/98) paracentesis (Chronic 07/2017) Social History Smoking Status: Current every day smoker ROS Const Const: Negative for fatigue, weakness, body ache, fever(s), headache(s), chills, frequent falls, night sweats, daytime sleepiness, difficulty sleeping, excessive sweating, weight gain, weight loss, increased appetite, poor appetite, anorexia or other Eyes Eyes: Negative for blind spots, loss of peripheral vision, transient loss of vision, blurry vision, change in vision, double vision, floaters, tunnel vision or other ENT ENT: Negative for headache(s), dizziness, hearing loss, tinnitus, Nosebleed/epistaxis, balance problems, post nasal drip, lip swelling, tongue swelling, bleeding gums, hoarseness, neck pain, dry mouth or other Cardio Chest Pain: No Palpitations: No Edema: None Muscle aches with walking: None Resp Respiratory: Negative for SOB with activity, SOB at rest, SOB orthopnea\SOB lying down, Coughing up blood/hemoptysis, chest congestion, pain on inspiration, snoring, stridor, wheezing, crackles, paroxysmal nocturnal dyspnea or other GI GI: Negative nausea, vomiting, heartburn, constipation, belching, bloating, cramping, vomiting blood/hematemesis, bright, red blood in stools, black,tarry stools, loose stools, Difficulty Swallowing or other : Negative for hematuria, frequent nighttime urination/ nocturia, erectile dysfunction or abnormal vaginal bleeding Musc Musc: Negative for balance problems, muscle aches/ myalgia, muscle weakness or joint pain Skin Skin: Negative redness, non-healing lesions, rash, unusual bruising, skin ulcer, wounds, jaundice or other Neuro Neuro: Negative for weakness, headache(s), frequent falls, blurry vision, double vision, dizziness, lightheadedness, near syncope, syncope, orthostatic symptoms, confusion, memory loss, restless legs, vertigo, seizures, lack of coordination or other [place] Hematologic/Lymphatic: Negative for easy bleeding, easy bruising, enlarged lymph nodes or other Endo Endo: Negative for fatigue, excessive sweating, cold intolerance, heat intolerance, flushing, increased thirst/drinking, increased hunger, hair loss, hair growth or other Psych Psych: Negative for anxiety, depression, thoughts of harming anyone, thoughts of harming yourself, visual hallucinations, panic attacks or audible hallucinations Allergy Allergy/Immunology: Negative for lip swelling, Negative for tongue swelling, Negative for rash, Negative for throat swelling, Negative for hives Cardiology Exam Const Appearance: cooperative, healthy appearing and no acute distress Nutritional Appearance: well nourished Orientation: alert, oriented x3 and oriented to person Head Head: normal to inspection, atraumatic and normocephalic Nose: external nose normal Face and Sinus: face symmetric Mouth: oral mucosae normal Eyes General: appearance normal, both eyes and all related structures Eyelids: eyelids normal Conjunctivae: conjunctivae normal Pupils: PERRL and normal by confrontation EOM: EOM intact bilaterally Neck Neck: normal visual inspection and full ROM Carotids: normal carotid upstroke Chest Chest inspection: normal inspection of the chest Auscultation: Bilateral: Clear to Auscultation Cardio Palpation: normal PMI Rate: regular rate Rhythm: regular rhythm Heart sounds: S1 normal and S2 normal GI GI: normal to inspection, no hepatosplenomegaly and bowel sounds present Neuro General: alert, oriented x3, awake, CN's II-XI intact bilaterally and moves all extremities Skin Skin: no rashes or lesions noted Extremities Pulses: Normal: Right Femoral Pulse, Left Femoral Pulse, Right Dorsalis Pedis Pulse, Left Dorsalis Pedis Pulse, Right Posterior Tibial Pulse, Left Posterior Tibial Pulse, Right Radial Pulse, Left Radial Pulse Lower Extremity Edema: None: Bilateral Psych Psychological: normal affect Assessment AND Plan 1. Atherosclerosis of coronary artery of [place] heart without angina pectoris I25.10 Plan 1. Coronary artery disease: No symptoms at this time. No indication for any additional testing. His blood pressure and heart rate are well-controlled. Recommend he continue baby aspirin, Coreg, Lasix, Imdur and lisinopril as well as spironolactone for his ischemic cardiomyopathy. I have highly encouraged him to discontinue all tobacco products but unfortunately he continues to smoke. Orders Orders: 2. HLD (hyperlipidemia) E78.5 Plan 2. Hyperlipidemia: His LDL and HDL cholesterol are fairly well-controlled. Continue Zocor. We will repeat his lipid profile and LFTs given his history of ascites and needing paracentesis. Fortunately he has not required any additional paracenteses. 3. Return office in 6 month This note was generated using a voice recognition system and there may be incorrect words, spelling or punctuation that were not noted when reviewing the office note prior to saving. Orders Orders: Plan Detail Other Orders Orders: Other Medications New: Discontinued: Follow Up +6M (Pierre) Coding Level of Care Code Off vis,est,level 3 Diagnoses Atherosclerosis of coronary artery of [place] heart without angina pectoris I25.10 HLD (hyperlipidemia) E78.5 Coding Level of Care Code Off vis,est,level 3 Diagnoses Atherosclerosis of coronary artery of [place] heart without angina pectoris I25.10 HLD (hyperlipidemia) E78.5 04/19/18 1156 <Electronically signed by Christopher Ramirez MD> Date [facility] Signature: Date (if applicable) CC: Lio Gilliland PARACENTESIS WITH US Observed: 11/04/2017 Status: F Source: [facility] 10:39 AM [facility] REPOSITORY [facility] Imaging Services [address] [place] [address] Paracentesis with US MR#: [id number] Acct: [id number] Name: BENNY SUMNER Rep #: [id number] : 1940 M 76 From: Shane Medrano MD PCP: Lio Gilliland Status: REG CLI Study: Paracentesis with US Date of Exam: 11/04/17 Exam# [id number] Ordering Dr: Romel Amaro MD PROCEDURE: Ultrasound guided paracentesis. DATE OF EXAMINATION: November 04, 2017.. INDICATION: Male, 76 years old. Ascites. PHYSICIAN: Shane Medrano M.D. TECHNIQUE: The risks, benefits, and alternatives to the procedure were explained to the patient. The specific risks of bleeding, infection, and damage to bowel were detailed and accepted. Witnessed informed consent was obtained. The abdomen was ultrasonographically surveyed. An appropriate pocket of fluid was identified at the right lower quadrant. The skin were cleaned and prepped in the usual sterile fashion. Using ultrasound guidance, the peritoneal cavity was accessed with a 5-Emirati paracentesis needle/catheter system. The trocar was removed. A total of 8600 ml of meghann-colored fluid were removed from the peritoneal cavity. The catheter was removed and a sterile dressing was applied. The procedure was well tolerated. US/Paracentesis with US IMPRESSION: Ultrasound guided paracentesis. Electronically Signed: Shane Medrano MD at 12:31 EST Tel [phone], Service support , CC: Lio Gilliland; Romel Amaro [employer] Manager: Signed BASIC METABOLIC Collected: 10/28/2017 Status: F Source: [facility]A PROFILE ([facility]) 4:46 PM [facility] REPOSITORY TYPE CODE TESTS RESULT OUT OF RANGE REFERENCE UNITS LAB L501.0100 70-110 mg/dL High GLU 150 Result Comment: Fasting Glucose result greater than or equal to 126 mg/dL suggests DIABETES MELLITUS per A.D.A. criteria. LAB L501.1000 7-18 mg/dL High BUN 34 LAB L501.1100 0.70-1.30 mg/dL High CREAT,SERUM 1.53 Result Comment: The validity of the calculated GFR AND GFRAA in patients over 70 years has not been determined. Clinical correlation is essential. LAB L501.1110 >60 mL/min Low EST GFR 47 Result Comment: Non- GFR Calc LAB L501.1115 >60 mL/min Low EST GFR - AA 57 Result Comment: GFR Calc LAB L501.1300 10-20 RATIO High BUN/CRE 22.2 LAB L501.2200 8.5-10.1 mg/dL Low CA 8.2 LAB L501.5300 136-145 mmol/L NA Normal 139 LAB L501.5600 3.5-5.1 mmol/L K Normal 4.3 LAB L501.5900 98-107 mmol/L CL Normal 105 LAB L501.6100 21.0-32.0 mmol/L Normal CO2 27.0 LAB L501.6200 5-15 Normal GAP 7 Performed By: #### L500.2500 #### [facility] [address] [place], [address] ALLERGIES ALLERGIES DATE TYPE / CODE NAME / CODE REACTION SEVERITY SOURCE 09/02/2018 Drug Sulfa Nausea Unknown [facility]160 [facility] Antibiotics)/ Repository CT) [id number](RX NORM) Drug SULFA Moderate Rejikalpesh Ortiz Allergy/4160 (sulfonamide) (Severity [facility] [address](SNOMED /79801330(RXN Modifier) Repository CT) ORM) (Qualifier Value) ENCOUNTERS ENCOUNTERS ADMIT/DISCHARGE ACCOUNT ADMITTING ENCOUNTER LOCATION SOURCE NUMBER CLASS 09/11/2018 [id number] Ambulatory BMSBuilding:B Laura 8 MS.CF.[facility] Repository 09/11/2018 [id number] Ambulatory Laura [place] 1 [facility] ing:[facility] Repository 09/08/2018/ [id number] [facility] Repository 09/04/2018/ [id number] Ambulatory BMSBuilding:B Laura 8 6 MS.[facility] Repository 08/22/2018/ [id number] BLAIRE ZUNIGA Emergency BuildinR Reji Ortiz 8 DO oom: ERBed: Sharla [facility] Repository 04/17/2018/ [id number] Ambulatory BMSBuilding:B Laura 8 9 MS.[facility] Repository 11/18/2017 [id number] Ambulatory Laura [place] 5 [facility] ing:[place] Repository 11/04/2017 [id number] Ambulatory Laura [place] 3 [facility] ing:[place] Repository 10/28/2017 [id number] Ambulatory Laura [place] 3 [facility] ing:[facility] Repository PAYERS PAYERS ENCOUNTER GUARANTOR PAYER SUBSCRIBER SOURCE 09/11/2018 BENNY Metzger Primary BENNY [place] [id number] SR Insurance:HUMANA HAHNDOB: [place] [address], MEDICARE PPOPolicy [id number] [place] [id number]: Number: Repository [id number] (HP) Date:7510-16-91IB [address] [id number]: 09/11/2018 Secondary NOT GIVENUNK [place] Insurance:SELF PAY [facility] Number: Effective Repository Date:2018-09-11 09/11/2018 BENNY F Primary BENNY [place] [id number] SR Insurance:HUMANA HAHNDOB: [place] [address], MEDICARE PPOPolicy [id number] [place] [id number]: Number: Repository [id number] (HP) Date:7240-90-74KV[address] [phone]: 09/11/2018 Secondary NOT GIVENUNK [place] Insurance:SELF PAY [facility] Number: Effective Repository Date:2018-09-04 09/08/2018 BENNY EPHRAIMB: Primary BENNY Ortiz [id number] Insurance:HUMANA TAISHADOB: Memorial SR MEDICARE ADVANTAGE [id number] Repository [place] [address]Kee: Number: [address] [place] [address], [id number] [place] [id number] (HP) Date:Plan Name:[address] [id number]: 09/04/2018 BENNY Metzger Primary BENNY [place] [id number] State Insurance:HUMANA HAGREGGDOB: Community Route MEDICARE PPOPolicy [id number], Number: Repository [place] [address]Cbu: [id number] Date:0331-21-93TP [address] () [address] [place] [id number]: 09/04/2018 Secondary NOT GIVENUNK [place] Insurance:SELF PAY [facility] Number: Effective Repository Date:2018-09-04 08/22/2018 BENNY YEB: Primary BENNY Ballne Insurance:HUMANA TAISHADOB: Memorial SR MEDICARE ADVANTAGE [id number] [place] [address] Repository [place] [address]Wcy: Number: [address] [place] [address], [id number] [place] [id number] () Date:Plan Name:[facility] [address] [place] [id number]: 08/22/2018 Secondary BENNY Ortiz Insurance:HUMANA HAGREGGDOB: Memorial MEDICARE ADVANTAGE [id number] Repository Number: [address] [place] [address] [id number] [place] [id number] Date:Plan Name:[facility] O [address] [id number]: 04/17/2018 BENNY Metzger Primary BENNY [place] [id number] State Insurance:HUMANA TAISHADOB: Community Route MEDICARE PPOPolicy [id number], Number: Repository [place] [address]Mtl: [id number] Date:4161-04-49XS B[address] () [address] [place] [phone]: 04/17/2018 Secondary NOT GIVENUNK [place] Insurance:SELF PAY [facility] Number: Effective Repository Date:2018-04-15 11/18/2017 BENNY F Primary BENNY Domenica [place] [id number] SR Insurance:HUMANA HAGREGGDOB: [place] [address], MEDICARE PPOPolicy [id number] [id number]: Number: Repository [id number] (HP) Date:1675-74-08OG [address] [place] [id number]: 11/18/2017 Secondary NOT GIVENUNK [place] Insurance:SELF PAY [facility] Number: Effective Repository Date:2017-11-04 11/04/2017 BENNY Domenica Primary BENNY F [place] [id number] SR Insurance:HUMANA HAHNDOB: [place] [address], MEDICARE PPOPolicy [id number] [id number]: Number: Repository [id number] (HP) Date:1065-44-04SM [address] [place] [phone]: 11/04/2017 Secondary NOT GIVENUNK [place] Insurance:SELF PAY [facility] Number: Effective Repository Date:2017-10-25 10/28/2017 BENNY F Primary BENNY F [place] [id number] SR Insurance:HUMANA HAHNDOB: [place] [address], MEDICARE PPOPolicy [id number] [id number]: Number: Repository [id number] (HP) Date:8550-32-31CX [address] [place] [phone]: 10/28/2017 Secondary NOT GIVENUNK [place] Insurance:SELF PAY [facility] Number: Effective Repository Date:2017-10-28
== END ==
PROVIDERS: Family Provider Family Medicine; PCP Family Medicine; Referring Provider Internal Medicine Cardiovascular Disease; Visit Provider Internal Medicine Cardiovascular Disease
DX: I25.10 Atherosclerotic heart disease of native coronary artery without angina pectoris (principal); I25.5 Ischemic cardiomyopathy; R55 Syncope and collapse; E78.5 Hyperlipidemia, unspecified; Z95.1 Presence of aortocoronary bypass graft; Z95.5 Presence of coronary angioplasty implant and graft
CPT/HCPCS: 93017; 93350; J7040; A4216

== ENCOUNTER → 2019-05-22 | Outpatient (CLI) | payer MEDICARE, SELFPAY ==
[2019-05-04 13:21] VITALS: BMI 28.5
--- NOTE | 2019-05-22 13:49 | ECHOD_ITS ---
Reason For Study: s/p CABG Procedure This was a 2D Doppler, Color Flow transthoracic echocardiogram. Exam performed in department. Left Ventricle Mild concentric left ventricular hypertrophy. The estimated ejection fraction is 65 %. Septal motion consistent with IVCD. Stage 1 diastolic dysfunction. No regional wall motion abnormalities noted. Right Ventricle Normal size and thickness. Normal systolic function. Atria Normal left atrium. Normal right atrium. Normal atrial septum. Mitral Valve Mild diffuse mitral valve thickening. Mild (1+) mitral valve insufficiency. Tricuspid Valve Normal tricuspid valve. Mild (1+) tricuspid valve insufficiency. Right ventricular systolic pressure estimated to be 28 mmHg. Aortic Valve Trisinus/trileaflet aortic valve. Mild focal aortic valve thickening. Mild aortic stenosis. Pulmonic Valve Normal pulmonic valve. Great Vessels Normal aortic root. Normal arch. Normal inferior vena cava. Inferior vena cava collapse with sniff. Pericardium/Pleural No pericardial effusion. MMode/2D Measurements & Calculations LVIDd: 3.7 cm IVSd: 1.4 cm Ao root diam: 2.1 cm LVIDs: 2.7 cm LVPWd: 1.1 cm RVDd: 3.7 cm FS: 27.7 % LAV(MOD-bp): 49.7 ml LVAd ap4: 26.2 cm2 SV(MOD-sp4): 44.7 ml LAV(MOD-bp) Indexed: 26.7 ml/m2 EDV(MOD-sp4): 66.4 ml LAV(MOD-sp2): 56.8 ml EDV(sp4-el): 68.0 ml LAV(MOD-sp4): 41.1 ml LVAs ap4: 12.8 cm2 ESV(MOD-sp4): 21.8 ml ESV(sp4-el): 20.2 ml EF(MOD-sp4): 67.2 % EF(sp4-el): 70.2 % SV(sp4-el): 47.7 ml LA A4 area: 17.4 cm2 LA dimension(2D): 3.6 cm RA A4 area: 14.2 cm2 Doppler Measurements & Calculations MV E max trevon: 75.2 cm/sec Lat Peak E' Trevon: 6.8 cm/sec Med Peak E' Trevon: 4.8 cm/sec MV A max trevon: 91.1 cm/sec E/E' lat: 11.1 E/E' med: 15.7 MV E/A: 0.82 Ao V2 max: 167.4 cm/sec LV V1 max: 88.7 cm/sec PA V2 max: 99.0 cm/sec Ao max P.2 mmHg LV V1 max P.1 mmHg Ao V2 mean: 109.4 cm/sec Ao mean P.3 mmHg Ao V2 VTI: 35.3 cm TR max trevon: 241.2 cm/sec TR max P.3 mmHg Interpretation Summary Mild concentric left ventricular hypertrophy. The estimated ejection fraction is 65 %. Stage 1 diastolic dysfunction. Mild (1+) mitral valve insufficiency. Mild (1+) tricuspid valve insufficiency. Right ventricular systolic pressure estimated to be 28 mmHg. Mild aortic stenosis. Compared to echo report dated 02/13/2012, no appreciable changes noted. Ordering Physician: Christopher Jay Referring Physician: Lio Gilliland Performed By: Elissa Reaves, ALEXY, RVT
== END | disposition home or self-care (01) ==
PROVIDERS: Family Provider Family Medicine; PCP Family Medicine; Referring Provider Internal Medicine Cardiovascular Disease; Visit Provider Internal Medicine Cardiovascular Disease
DX: R55 Syncope and collapse (principal); Z95.1 Presence of aortocoronary bypass graft
CPT/HCPCS: 93306

== ENCOUNTER → 2019-12-25 | Outpatient (CLI) | payer MEDICARE, SELFPAY ==
[2019-11-19 13:02] VITALS: BMI 29.8
[2019-12-25 15:50] LABS: Hematocrit 40.6 % (40-54); Hemoglobin 12.6 g/dL (13.0-16.5); Mean Platelet Vol. 11.4 fl (6.2-12.0); Platelet Count 169 K/mm3 (150-450); RBC Distribution Width CV 15.8 % (11.6-14.6); RBC Distribution Width SD 58.1 fl (35.1-43.9); Red Blood Count 4.06 M/mm3 (4.6-6.2); White Blood Count 10.2 K/mm3 (4.4-11.0)
[2019-12-25 16:10] LABS: AST(SGOT) 46 U/L (15-37); Alanine Aminotransfer ALT/SGPT 39 U/L (16-61); Alkaline Phosphatase 180 U/L (45-117); Anion Gap 3 (5-15); BUN 29 mg/dL (7-18); Calcium,Total 8.7 mg/dL (8.5-10.1); Chloride 107 mmol/L (98-107); Creatinine, Serum 1.93 mg/dL (0.70-1.30); EST Glomerular Filtration Rate 36 mL/min (>60); Est Glom Filt Rate - Afr Amer 43 mL/min (>60); Globulin 3.1 g/dL (2.2-4.2); Glucose 178 mg/dL (74-106); Protein, Total 6.1 g/dL (6.4-8.2); Sodium Level 139 mmol/L (136-145)
[2019-12-25 16:12] LABS: International Normalized Ratio 1.2; Prothrombin Time (Protime)PT. 15.4 SECONDS (11.7-14.9)
[2019-12-25 16:13] LABS: Partial Thromboplast Time 30.5 Seconds (24.1-36.2)
[2019-12-27 16:26] LABS: AFP, Tumor Marker 3.4 ng/mL (0.0-8.3)
== END | disposition home or self-care (01) ==
LOC: MTLAB 13:53
PROVIDERS: PCP Family Medicine; Referring Provider Internal Medicine Gastroenterology; Visit Provider Internal Medicine Gastroenterology
DX: K74.60 Unspecified cirrhosis of liver (principal); R18.8 Other ascites
CPT/HCPCS: 36415; 80053; 82105; 85027; 85610; 85730

== ENCOUNTER → 2019-12-29 | Outpatient (CLI) | payer MEDICARE, SELFPAY ==
[2019-11-19 13:02] VITALS: BMI 29.8
--- NOTE | 2019-12-29 12:33 | US_ITS ---
STUDY: ABDOMINAL ULTRASOUND -4 quadrants. REASON FOR VISIT: Male, 79 years old ASCITES TECHNIQUE: Ultrasound evaluation of the 4 quadrants was performed with real-time and static thornton-scale imaging. TECHNICAL QUALITY: Adequate. COMPARISON: None. FINDINGS: A small amount of fluid is seen in the right upper quadrant. Too small for safe paracentesis. US/Abdomen Limited IMPRESSION: Small amount of fluid in the right upper quadrant. Electronically Signed: Shane Medrano, at 14:05 EDT , Service support ,
== END | disposition home or self-care (01) ==
LOC: US 12:31
PROVIDERS: PCP Family Medicine; Referring Provider Internal Medicine Gastroenterology; Visit Provider Internal Medicine Gastroenterology
DX: K74.60 Unspecified cirrhosis of liver (principal); R18.8 Other ascites
CPT/HCPCS: 76705

== ENCOUNTER 2020-08-02 15:52 | Outpatient (RCR) | payer MEDICARE, SELFPAY ==
[2020-05-27 09:36] VITALS: BMI 28.3
[2020-08-02 17:50] LABS: Anion Gap 6 (5-15); BUN 58 mg/dL (7-18); Calcium,Total 9.2 mg/dL (8.5-10.1); Chloride 99 mmol/L (98-107); Creatinine, Serum 2.64 mg/dL (0.70-1.30); EST Glomerular Filtration Rate 25 mL/min (>60); Est Glom Filt Rate - Afr Amer 30 mL/min (>60); Glucose 255 mg/dL (74-106); Magnesium 2.1 mg/dL (1.6-2.6); Potassium 5.1 mmol/L (3.5-5.1); Sodium Level 133 mmol/L (136-145)
== END 2020-08-02 18:00 | disposition home or self-care (01) ==
LOC: MTLAB 15:52
PROVIDERS: PCP Family Medicine; Referring Provider Internal Medicine Gastroenterology; Visit Provider Internal Medicine Gastroenterology
DX: K74.60 Unspecified cirrhosis of liver (principal); Z79.899 Other long term (current) drug therapy
CPT/HCPCS: 36415; 80048; 83735

== ENCOUNTER → 2020-11-28 13:41 | Outpatient (CLI) | payer MEDICARE, SELFPAY ==
[2020-11-28 12:56] VITALS: BMI 29.9
[2020-11-28 15:10] LABS: AST(SGOT) 48 U/L (15-37); Alanine Aminotransfer ALT/SGPT 43 U/L (16-61); Albumin, Serum 2.8 g/dL (3.2-5.0); Alkaline Phosphatase 216 U/L (45-117); Anion Gap 6 (5-15); BUN 40 mg/dL (7-18); BUN/Creat Ratio 17.1 RATIO (10-20); Calcium,Total 8.1 mg/dL (8.5-10.1); Chloride 107 mmol/L (98-107); Cholesterol 104 mg/dL (200); Creatinine, Serum 2.34 mg/dL (0.70-1.30); EST Glomerular Filtration Rate 29 mL/min (>60); Est Glom Filt Rate - Afr Amer 35 mL/min (>60); Globulin 2.9 g/dL (2.2-4.2); Glucose 279 mg/dL (74-106); High Density Lipoprotein 49 mg/dL; Potassium 4.7 mmol/L (3.5-5.1); Protein, Total 5.7 g/dL (6.4-8.2); Sodium Level 138 mmol/L (136-145); Triglycerides 93 mg/dL; Very Low Density Lipoprotein 19 mg/dL (5-40)
== END ==
PROVIDERS: PCP Family Medicine; Visit Provider Physician Assistant Medical
DX: E78.5 Hyperlipidemia, unspecified (principal); I25.10 Atherosclerotic heart disease of native coronary artery without angina pectoris; I25.5 Ischemic cardiomyopathy
CPT/HCPCS: 36415; 80053; 80061

== ENCOUNTER → 2021-03-01 16:18 | Outpatient (CLI) | payer MEDICARE, SELFPAY ==
[2020-11-28 12:56] VITALS: BMI 29.9
[2021-03-01 17:41] LABS: Hematocrit 40.2 % (40-54); Hemoglobin 13.1 g/dL (13.0-16.5); Mean Corp Hgb Conc 32.6 g/dL (32-36); Mean Corpuscular Hgb 31.6 pg (27.0-32.0); Mean Corpuscular Volume 97.1 fL (80-94); Mean Platelet Vol. 12.4 fl (6.2-12.0); Platelet Count 157 K/mm3 (150-450); RBC Distribution Width CV 15.8 % (11.6-14.6); RBC Distribution Width SD 56.3 fl (35.1-43.9); Red Blood Count 4.14 M/mm3 (4.6-6.2)
[2021-03-01 17:56] LABS: Anion Gap 6 (5-15); BUN 40 mg/dL (7-18); BUN/Creat Ratio 15.2 RATIO (10-20); Calcium,Total 8.5 mg/dL (8.5-10.1); Chloride 100 mmol/L (98-107); Creatinine, Serum 2.63 mg/dL (0.70-1.30); EST Glomerular Filtration Rate 25 mL/min (>60); Est Glom Filt Rate - Afr Amer 30 mL/min (>60); Glucose 240 mg/dL (74-106); Magnesium 1.8 mg/dL (1.6-2.6); Potassium 4.7 mmol/L (3.5-5.1); Sodium Level 134 mmol/L (136-145)
[2021-03-01 18:34] LABS: International Normalized Ratio 1.3; Prothrombin Time (Protime)PT. 15.1 SECONDS (11.7-14.9)
[2021-03-01 18:35] LABS: Partial Thromboplast Time 33.1 Seconds (24.1-36.2)
[2021-03-03 10:01] LABS: AFP, Tumor Marker 2.2 ng/mL (0.0-8.3)
== END ==
PROVIDERS: PCP Family Medicine; Referring Provider Internal Medicine Gastroenterology; Visit Provider Internal Medicine Gastroenterology
DX: K74.60 Unspecified cirrhosis of liver (principal); K57.92 Diverticulitis of intestine, part unspecified, without perforation or abscess without bleeding
CPT/HCPCS: 36415; 80048; 82105; 83735; 85027; 85610; 85730